=== PATIENT | female | born 1980 | race Caucasian/White ===

== ENCOUNTER 2019-07-21 13:26 | Emergency (ER) | payer SELFPAY ==
--- OUTSIDE RECORDS SUMMARY | 2019-07-21 13:49 | XMS REPORT | Summary of Care ---
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 Tab cetirizine (ZYRTEC) Take 1 Tab by 30 Tab 1 12/29/2014 Active 10 MG Oral Tab mouth DAILY. cyclobenzaprine Take 1 Tab by 30 Tab 1 08/03/2017 Active (FLEXERIL) 10 MG Oral mouth THREE TabIndications: TIMES DAILY Strain of lumbar NEEDED for region, initial muscle spasm. encounter escitalopram Take 1 Tab by 90 Tab 3 09/29/2017 Active (LEXAPRO) 10 MG Oral mouth DAILY. TabIndications: Anxiety and depression VENTOLIN HFA 108 (90 INHALE 2 PUFFS 18 g 5 07/01/2018 Active Base) MCG/ACT BY MOUTH EVERY Inhalation Aero 4 HOURS SolnIndications: Mild NEEDED FOR intermittent asthma WHEEZING with acute exacerbation Benzonatate 200 MG Take 40 Caps 40 Cap 0 05/06/2019 Active Oral CapIndications: by mouth EVERY Cough EIGHT HOURS NEEDED (cough). doxycycline Take 100 mg by 14 Tab 0 05/05/2019 Discontinued (VIBRAMYCIN) 100 MG mouth TWICE 0 Oral TabIndications: DAILY. Acute recurrent frontal sinusitis fluconazole Take 1 Tab by 2 Tab 2 05/05/2019 Discontinued (DIFLUCAN) 150 MG mouth ONE 0 Oral Tab TIME. documented as of this encounter (statuses as of 05/24/2019) Active Problems Problem Noted Date Unspecified asthma(493.90) 05/26/2007 Personal history of tobacco use, presenting hazards to health 05/26/2007 Overview: Quit 2007 Allergic rhinitis, cause unspecified 03/26/2007 documented as of this encounter (statuses as of 05/24/2019) Immunizations Name Administration Dates Next Due DTAP Vaccine 12/05/1983, 04/03/1981 Influenza (IM) Preservative Free 03/01/2019, 02/17/2018, 02/05/2017, 02/19/2015, 03/10/2014, 03/13/2012 Influenza Vaccine Whole 11/03/2006 MENINGOCOCCAL CONJUGATE VACCINE 06/01/2007 MMR VACCINE 02/02/1992, 02/05/1980 Polio - Inactivated Vaccine 06/12/1979, 04/10/1979, 03/06/1979, 01/29/1979 TDAP Vaccine 01/17/2011, 01/18/2009 Tuberculin Skin Test 12/05/1983, 11/06/1979 documented as of this encounter Social History Tobacco Use Types Packs/Day Years Used Date Former Smoker Quit: 05/18/2007 Smokeless Tobacco: Never Used Alcohol Use Drinks/Week oz/Week Comments Yes 0 Standard drinks or equivalent 0.0 occasional Sex Assigned at Date Recorded Not on file Job Start Date Occupation Industry Not on file Not on file Not on file Travel History Travel Start Travel End No recent travel history available. documented as of this encounter Last Filed Vital Signs Vital Sign Reading Time Taken Comments Blood Pressure 130/84 05/24/2019 2:22 PM EST Pulse 94 05/24/2019 2:22 PM EST Temperature - - Respiratory Rate - - Oxygen Saturation 96% 05/24/2019 2:22 PM EST Inhaled Oxygen Concentration - - Weight 88.9 kg (196 lb) 05/24/2019 2:22 PM EST Height 157.5 cm (5' 2") 05/24/2019 2:22 PM EST Body Mass Index 35.85 05/24/2019 2:22 PM EST documented in this encounter Patient Instructions Patient InstructionsJennifer Lyon FNP - 05/24/2019 2:20 PM TONI will send you pap smear results Send eguthrie note about dose of lexapro you are taking and can then adjust. documented in this encounter Progress Notes Jennifer Lyon FNP - 05/24/2019 2:20 PM EST PATIENT: Deb Angelo : 1980 DATE OF SERVICE: 05/24/2019 Chief Complaint Patient presents with Physical SUBJECTIVE: 38-y.o. 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 She is feeling well and no new concerns. She is having first baseline mammogram today. She is having some increase in anxiety. Not sure about her dose. Only taking 1 /2 tab of what she has but not sure if a 10 mg or a 20 mg tab. Patient Active Problem List Diagnosis Date Noted Unspecified asthma(493.90) 05/26/2007 Personal history of tobacco use, presenting hazards to health 05/26/2007 Quit 2007 Allergic rhinitis, cause unspecified 03/26/2007 Current Outpatient Medications Medication Sig Benzonatate 200 MG Oral Cap Take 40 Caps by mouth EVERY EIGHT HOURS NEEDED (cough). cetirizine (ZYRTEC) 10 MG Oral Tab Take 1 Tab by mouth DAILY. cyclobenzaprine (FLEXERIL) 10 MG Oral Tab Take 1 Tab by mouth THREE TIMES DAILY NEEDED formuscle spasm. escitalopram (LEXAPRO) 10 MG Oral Tab Take 1 Tab by mouth DAILY. fexofenadine (NELLY) 180 MG Oral Tab Take 1 Tab by mouth DAILY. VENTOLIN HFA 108 (90 Base) MCG/ACT Inhalation Aero Soln INHALE 2 PUFFS BY MOUTH EVERY 4 HOURSAS NEEDED FOR WHEEZING No current facility-administered medications for this visit. Allergies: Amoxicillin; Celexa; and Keflex Patient's last menstrual period was 05/10/2019. ROS: She denies constitutional symptoms of fatigue, weakness, weight loss or gain, fevers, night sweats. No dyspnea or chest pain on exertion. No abdominal pain, change in bowel habits, black or bloody stools. 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 Normal menses, no abnormal bleeding, pelvic pain or discharge. No breast pain or new or enlarging lumps on self exam. No neurological complaints. OBJECTIVE: The patient appears well, alert, oriented x 3, in no distress. BP 130/84 (BP Location: Right arm, Patient Position: Sitting) | Pulse 94 | Ht 5' 2" (1.575 m) | Wt 196 lb (88.9 kg) | LMP 05/10/2019 | SpO2 96% | BMI 35.85 kg/m ENT normal. Neck supple. No adenopathy or thyromegaly. MARITZA. Lungs are clear, good air entry, no wheezes, rhonchi or rales. S1 and S2 normal, no murmurs, regular rate and rhythm. Abdomen soft withouttenderness, guarding, mass or organomegaly. Extremities show no edema, normal peripheral pulses. Neurological is normal, no focal findings. BREAST EXAM: breasts appear normal, no suspicious masses, no skin or nipple changes or axillary nodes PELVIC EXAM: normal external genitalia, vulva, vagina, cervix, uterus and adnexa. Pap done. ASSESSMENT: ICD-9-CM ICD-10-CM 1. Routine general medical examination at a health care facility V70.0 Z00.00 2. Pap smear for cervical cancer screening V76.2 Z12.4 PAP SMEAR THINPREP AND HPV 3. Anxiety and depression 300.00 F41.9 311 F32.9 Not clear about her lexapro dosing. ? If 10 or 20 mg. She will call with update and increase instructions. Patient Instructions I will send you pap smear results Send eguthrie note about dose of lexapro you are taking and can then adjust. Author: THOMAS Cobian 05/24/2019 15:21 documented in this encounter Plan of Treatment Name Type Priority Associated Diagnoses Order Schedule PAP SMEAR THINPREP AND Lab Routine Pap smear for cervical Ordered: 2019 HPV cancer screening Health Maintenance Due Date Last Done Comments PNEUMOCOCCAL 0-64 YRS (1 of 1984 1 - PPSV23) DIABETES SCREENING 08/18/2018 08/18/2017, 08/25/2014 MAMMOGRAM (SCREENING) 2018 DEPRESSION SCREENING 05/05/2020 05/05/2019 PAP SMEAR 12/16/2020 12/16/2017, 03/19/2010, 01/18/2009 DTaP/Tdap/Td Vaccines (5 - 01/17/2021 01/17/2011, 01/18/2009, Tdap) 12/05/1983, Additional history exists LIPID DISORDER SCREENING 08/18/2022 08/18/2017, 08/25/2014, 08/23/2009, Additional history exists MENINGOCOCCAL VACCINE IMM Aged Out 06/01/2007 No longer eligible based on patient's age to complete this topic INFLUENZA VACCINE Completed 03/01/2019, 02/17/2018, 02/05/2017, Additional history exists HEPATITIS A IMMUNIZATION Aged Out No longer eligible SERIES based on patient's age to complete this topic HPV IMMUNIZATION SERIES Aged Out No longer eligible based on patient's age to complete this topic documented as of this encounter Goals Goal Patient Goal Associated Recent Patient-Stated? Author Type Problems Progress Depression Depression No Keke, screen (PHQ-9) Rashawn Shah, total score < 5 Note: This is an individualized treatment (depression) goal for Deb Angelo: Displayed above is your goal for a depression screening (PHQ-9) score that would indicate good control of your depression. Keep a regular sleep schedule Lifestyle Rashawn Church MD Note: This is an individualized lifestyle goal for Deb Angelo: Please maintain a regular sleep schedule. This may help with some symptoms of depression. Take all prescribed medications as Self-management Rashawn Church MD directed Note: This is an individualized self-management goal for Deb Angelo: Please take all prescribed medications as directed. 1. Do not skip doses. If you cannot afford your medications, talk with your doctor. 2. Use a pill reminder system such as a pill box if needed. Your pharmacist can help you with this. 3. Contact your Pharmacy 5 days before your medication runs out. If you cannot take your medications for any reasons, talk with your doctor. 4. Please bring all of your medication bottles and inhalers (or a list of all your medications/inhalers) with you to every visit. Potential barriers to meeting all of your care plan goals will continue to be addressed on an ongoing basis. documented as of this encounter Procedures Procedure Name Priority Date/Time Associated Diagnosis Comments PAP SMEAR THINPREP AND Routine 12/16/2017 Results for this HPV (EXTERNAL) procedure are in the results section. documented in this encounter Results PAP SMEAR THINPREP AND HPV (EXTERNAL) (12/16/2017) HM PAP SMEAR Dr Resendiz [facility] POCT Performing Organization Address City/State/Zipcode Phone Number [facility] [address]CT [address] [place] [address] documented in this encounter Visit Diagnoses Diagnosis Routine general medical examination at a health care facility Pap smear for cervical cancer screening Screening for malignant neoplasm of the cervix Anxiety and depression Dysthymic disorder documented in this encounter Insurance Payer Benefit Plan / Subscriber ID Effective Dates Phone Address Type Group [employer] xxxxxxxxxxxx 2016-Present [employer] Guarantor Name Account Type Relation to Date of Phone Billing Patient Address Deb Angelo Personal/Family [address] (Home) [facility] [phone] [place] [address] (Work) documented as of this encounter
--- OUTSIDE RECORDS SUMMARY | 2019-07-21 13:49 | XMS REPORT | Summary of Care ---
:1980 Author Organization [facility] Address [address] [facility] [place] [address] Care Team Providers Name Role Phone Rashawn Davies Primary Care Provider Reason for Visit Reason Comments Eye Problem Left eye red and irritated. Encounter Details Date Type Department Care Team Description 07/14/2019 Office Visit [facility] Rashawn Davies Bacterial conjunctivitis Medicine MD Pablo of left eye (Primary Dx) [address] [place] [address] [place] [address] [phone] Allergies Active Allergy Reactions Severity Noted Date Comments Amoxicillin Unknown Reaction 05/26/2007 Celexa Other 12/18/2014 palpitations Keflex Unknown Reaction 05/26/2007 documented as of this encounter (statuses as of 07/14/2019) Medications Medication Sig Dispensed Refills Start Date End Date Status fexofenadine (NELLY) Take 1 Tab by 90 5 08/20/2009 Active 180 MG Oral Tab mouth DAILY. cetirizine (ZYRTEC) 10 Take 1 Tab by 30 Tab 1 12/29/2014 Active MG Oral Tab mouth DAILY. cyclobenzaprine Take 1 Tab by 30 Tab 1 08/03/2017 Active (FLEXERIL) 10 MG Oral mouth THREE TabIndications: Strain TIMES DAILY of lumbar region, NEEDED for initial encounter muscle spasm. VENTOLIN HFA 108 (90 INHALE 2 PUFFS 18 g 5 07/01/2018 Active Base) MCG/ACT BY MOUTH EVERY Inhalation Aero 4 HOURS SolnIndications: Mild NEEDED FOR intermittent asthma WHEEZING with acute exacerbation Benzonatate 200 MG Oral Take 40 Caps by 40 Cap 0 05/06/2019 Active CapIndications: Cough mouth EVERY EIGHT HOURS NEEDED (cough). escitalopram (LEXAPRO) Take 1 Tab by 90 Tab 5 05/25/2019 05/24/2020 Active 20 MG Oral Tab mouth DAILY. fluconazole (DIFLUCAN) Take 1 Tab by 2 Tab 0 05/31/2019 Active 150 MG Oral mouth DAILY. TabIndications: Candidiasis of female genitalia triamcinolone Apply to 1 Tube 0 06/27/2019 Active (KENALOG,ARISTOCORT) affected areas 0.1 % Apply externally twice daily. CreamIndications: Irritant contact dermatitis due to other chemical products oseltamivir (TAMIFLU) Take 1 Cap by 10 Cap 0 07/06/2019 Active 75 MG Oral Cap mouth DAILY. yezqdaos-[id number] Place 2 Drops 7.5 mL 0 07/14/2019 Active ocortisone in left eye (CORTISPORIN) FOUR TIMES Ophthalmic Suspension DAILY. documented as of this encounter (statuses as of 07/14/2019) Active Problems Problem Noted Date Unspecified asthma(493.90) 05/26/2007 Personal history of tobacco use, presenting hazards to health 05/26/2007 Overview: Quit 2007 Allergic rhinitis, cause unspecified 03/26/2007 documented as of this encounter (statuses as of 07/14/2019) Immunizations Name Administration Dates Next Due DTAP [...] Assigned at Date Recorded Not on file documented as of this encounter Last Filed Vital Signs Vital Sign Reading Time Taken Comments Blood Pressure 118/70 07/14/2019 1:59 PM EST Pulse 70 07/14/2019 1:59 PM EST Temperature - - Respiratory Rate - - Oxygen Saturation - - Inhaled Oxygen Concentration - - Weight 89.8 kg (198 lb) 07/14/2019 1:59 PM EST Height 157.5 cm (5' 2") 07/14/2019 1:59 PM EST Body Mass Index 36.21 07/14/2019 1:59 PM EST documented in this encounter Patient Instructions Patient InstructionsRashawn Davies MD - 07/14/2019 1:40 PM ESTPink eye use antibiotic eye drops four times daily Left eye five days documented in this encounter Progress Notes Rashawn Davies MD - 07/14/2019 1:40 PM ESTSUBJECTIVE: 38-y.o. female with burning, redness, discharge and mattering in left eye for 2 days. No other symptoms. No significant prior ophthalmological history. No change in visual acuity, no photophobia, no severe eye pain. OBJECTIVE: Patient appears well, vitals signs are normal. Eyes: left eye with findings of typical conjunctivitis noted; erythema and discharge. PERRLA, no foreign body noted. No periorbital cellulitis. The corneas are clear and fundi normal. Visual acuity normal. ASSESSMENT: Conjunctivitis - probably bacterial PLAN: Antibiotic drops per order. Hygiene discussed. If other family members develop same condition, may use same medication for them if they are not known to be allergic to it. Call prn. documented in this encounter Plan of Treatment Health Maintenance Due Date Last Done Comments DIABETES SCREENING 08/18/2018 08/18/2017, 08/25/2014 DEPRESSION SCREENING 05/05/2020 05/05/2019 MAMMOGRAM (SCREENING) 05/24/2020 05/24/2019 DTaP/Tdap/Td Vaccines (5 - 01/17/2021 01/17/2011, 01/18/2009, Tdap) 12/05/1983, Additional history exists PAP SMEAR 05/24/2022 05/24/2019, 12/16/2017, 03/19/2010, Additional history exists LIPID DISORDER SCREENING 08/18/2022 [...] on patient's age to complete this topic PNEUMOCOCCAL 0-64 YRS Aged Out No longer eligible based on [...] ongoing basis. documented as of this encounter Results Not on filedocumented in this encounter Visit Diagnoses Diagnosis Bacterial conjunctivitis of left eye Other conjunctivitis documented in this encounter Insurance Payer Benefit Plan / Subscriber ID Effective Dates Phone Address Type Group [employer] [id number] 2016-Present [employer] Guarantor Name Account Type Relation to Date of Phone Billing Patient Address Deb Angelo Personal/Family [address] (Home) [facility] [phone] [place] [address] (Work) documented as of this encounter
--- OUTSIDE RECORDS SUMMARY | 2019-07-21 13:49 | XMS REPORT | Summary of Care ---
:1980 Author Organization [facility] Address [address] [facility] [address] [address] [address] Care Team Providers Name Role Phone Rashawn Davies Primary Care Provider Reason for Visit Reason Comments Check Up rash on upper body started under breast and is now streading down to stomach x1 week Encounter Details Date Type Department Care Team Description 06/27/2019 Office Visit [facility] Rizwana Marroquin, Irritant contact Practice [facility] dermatitis due to [address] [place] [address] [place] [address] products (Primary Dx) [phone] Allergies Active Allergy Reactions Severity Noted Date Comments Amoxicillin Unknown Reaction 05/26/2007 Celexa Other 12/18/2014 palpitations Keflex Unknown Reaction 05/26/2007 documented as of this encounter (statuses as of 06/27/2019) Medications Medication Sig Dispensed Refills Start Date End Date Status fexofenadine Take 1 Tab by 90 5 08/20/2009 Active (NELLY) 180 MG mouth DAILY. Oral Tab cetirizine (ZYRTEC) Take 1 Tab by 30 Tab 1 12/29/2014 Active 10 MG Oral Tab mouth DAILY. cyclobenzaprine Take 1 Tab by 30 Tab 1 08/03/2017 Active (FLEXERIL) 10 MG mouth THREE Oral TabIndications: TIMES DAILY Strain of lumbar NEEDED for region, initial muscle spasm. encounter VENTOLIN HFA 108 (90 INHALE 2 18 g 5 07/01/2018 Active Base) MCG/ACT PUFFS BY Inhalation Aero MOUTH EVERY 4 SolnIndications: HOURS Mild intermittent NEEDED FOR asthma with acute WHEEZING exacerbation Benzonatate 200 MG Take 40 Caps 40 Cap 0 05/06/2019 Active Oral CapIndications: by mouth Cough EVERY EIGHT HOURS NEEDED (cough). escitalopram Take 1 Tab by 90 Tab 5 05/25/2019 05/24/19 Active (LEXAPRO) 20 MG Oral mouth DAILY. 21 Tab fluconazole Take 1 Tab by 2 Tab 0 05/31/2019 Active (DIFLUCAN) 150 MG mouth DAILY. Oral TabIndications: Candidiasis of female genitalia triamcinolone Apply to 1 Tube 0 06/27/2019 06/27/19 Discontinued (KENALOG,ARISTOCORT) affected 20 (Reorder) 0.1 % Apply areas twice externally daily. CreamIndications: Irritant contact dermatitis due to other chemical products documented as of this encounter (statuses as of 06/27/2019) Active Problems Problem Noted Date Unspecified asthma(493.90) 05/26/2007 Personal history of tobacco use, presenting hazards to health 05/26/2007 Overview: Quit 2007 Allergic rhinitis, cause unspecified 03/26/2007 documented as of this encounter (statuses as of 06/27/2019) Immunizations Name Administration Dates Next Due DTAP [...] Sign Reading Time Taken Comments Blood Pressure 126/72 06/27/2019 2:25 PM EST Pulse 80 06/27/2019 2:25 PM EST Temperature 37.1 06/27/2019 2:25 PM EST C (98.7 F) Respiratory Rate - - Oxygen Saturation 98% 06/27/2019 2:25 PM EST Inhaled Oxygen Concentration - - Weight 89.8 kg (198 lb) 06/27/2019 2:25 PM EST Height 157.5 cm (5' 2") 06/27/2019 2:25 PM EST Body Mass Index 36.21 06/27/2019 2:25 PM EST documented in this encounter Patient Instructions Patient InstructionsRizwana Marroquin NP - 06/27/2019 2:20 PM ESTCetirizine 10mg daily. Triamcinolone apply to affected areas once or twice daily for 1-2 weeks. Keep the area clean and dry. Only use skin sensitive soaps, scent free - no other chemicals etc. If not improving, or getting worse - return for re-eval. documented in this encounter Progress Notes Rizwana Marroquin NP - 06/27/2019 2:20 PM EST PATIENT: Deb Angelo : 1980 DATE OF SERVICE: 06/27/2019 CHIEF COMPLAINT: Chief Complaint Patient presents with Check Up rash on upper body started under breast and is now streading down to stomach x1 week Subjective HISTORY OF PRESENT ILLNESS: Deb Angelo is a 38-y.o. female. HPI Rash x1 week, started under both breasts after wearing a new bra did not wash- but stopped wearing the bra, and all bras - but rash spread down to abdomen. The rash itches, no drainage. Not painful.Anti itch cream helps. No fevers body aches chills malaise. Past Medical History: Diagnosis Date Allergic rhinitis, cause unspecified 03/26/2007 Personal history of tobacco use, presenting hazards to health 05/26/2007 Unspecified asthma(493.90) 05/26/2007 Family History Problem Relation Age of Onset Hypertension Mother Thyroid Mother Stroke Mother Hypertension Father Asthma Father Current Outpatient Medications Medication Sig Benzonatate 200 MG Oral Cap Take 40 Caps by mouth EVERY EIGHT HOURS NEEDED (cough). cetirizine (ZYRTEC) 10 MG Oral Tab Take 1 Tab by mouth DAILY. cyclobenzaprine (FLEXERIL) 10 MG Oral Tab Take 1 Tab by mouth THREE TIMES DAILY NEEDED formuscle spasm. escitalopram (LEXAPRO) 20 MG Oral Tab Take 1 Tab by mouth DAILY. fexofenadine (NELLY) 180 MG Oral Tab Take 1 Tab by mouth DAILY. fluconazole (DIFLUCAN) 150 MG Oral Tab Take 1 Tab by mouth DAILY. triamcinolone (KENALOG,ARISTOCORT) 0.1 % Apply externally Cream Apply to affected areas twicedaily. VENTOLIN HFA 108 (90 Base) MCG/ACT Inhalation Aero Soln INHALE 2 PUFFS BY MOUTH EVERY 4 HOURSAS NEEDED FOR WHEEZING No current facility-administered medications for this visit. Allergies Allergen Reactions Amoxicillin Unknown Reaction Celexa Other palpitations Keflex Unknown Reaction Social History Socioeconomic History Marital status: Spouse name: Not on file Number of children: Not on file Years of education: Not on file Highest education level: Not on file Occupational History Not on file Social Needs Financial resource strain: Not on file Food insecurity Worry: Not on file Inability: Not on file Transportation needs Medical: Not on file Non-medical: Not on file Tobacco Use Smoking status: Former Smoker Last attempt to quit: 05/18/2007 Years since quittin.1 Smokeless tobacco: Never Used Substance and Sexual Activity Alcohol use: Yes Alcohol/week: 0.0 standard drinks Comment: occasional Drug use: No Sexual activity: Yes Partners: Male Lifestyle Physical activity Days per week: Not on file Minutes per session: Not on file Stress: Not on file Relationships Social connections Talks on phone: Not on file Gets together: Not on file Attends scientology service: Not on file Active member of club or organization: Not on file Attends meetings of clubs or organizations: Not on file Relationship status: Not on file Intimate partner violence Fear of current or ex partner: Not on file Emotionally abused: Not on file Physically abused: Not on file Forced sexual activity: Not on file Other Topics Concern Back Care Not Asked Bike Helmet Not Asked Blood Transfusions Not Asked Caffeine Concern Yes Comment: 2 c coffee/day Exercise No Hobby Hazards Not Asked International Travel Not Asked Service Not Asked Occupational Exposure Not Asked Seat Belt Not Asked Self-Exams Not Asked Sleep Concern Not Asked Special Diet No Stress Concern Not Asked Weight Concern Yes Comment: she would like to lose 15-20 lbs. 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 REVIEW OF SYSTEMS: Review of Systems Constitutional: Negative for chills, fever and malaise/fatigue. Musculoskeletal: Negative for joint pain and myalgias. Skin: Positive for itching and rash. Neurological: Negative for tingling and sensory change. Objective PHYSICAL EXAM: VITALS: BP 126/72 (BP Location: Left arm, Patient Position: Sitting) | Pulse 80 | Temp 98.7 F(37.1 C) (Tympanic) | Ht 5' 2" (1.575 m) | Wt 198 lb (89.8 kg) | SpO2 98% | BMI 36.21 kg/m Body mass index is 36.21 kg/m. Physical Exam Vitals signs and nursing note reviewed. Constitutional: General: She is not in acute distress. Appearance: Normal appearance. She is well-developed. Cardiovascular: Rate and Rhythm: Normal rate and regular rhythm. Heart sounds: Normal heart sounds. No murmur. No friction rub. No gallop. Pulmonary: Effort: Pulmonary effort is normal. No respiratory distress. Breath sounds: Normal breath sounds. Chest: Skin: Findings: Rash present. Rash is macular and papular. Rash is not urticarial. Neurological: Mental Status: She is alert. Psychiatric: Mood and Affect: Mood and affect normal. Speech: Speech normal. Behavior: Behavior normal. Behavior is cooperative. ASSESSMENT / IMPRESSION: ICD-9-CM ICD-10-CM 1. Irritant contact dermatitis due to other chemical products 692.4 L24.5 DISCONTINUED: triamcinolone (KENALOG,ARISTOCORT) 0.1 % Apply externally Cream Plan 1. Irritant contact dermatitis due to other chemical products Cetirizine 10mg daily. Triamcinolone apply to affected areas once or twice daily for 1-2 weeks. Keep the area clean and dry. Only use skin sensitive soaps, scent free - no other chemicals etc. If not improving, or getting worse - return for re-eval. Author: Rizwana Marroquin NP 06/27/2019 20:08 documented in this encounter Plan of Treatment Health Maintenance Due Date Last Done Comments PNEUMOCOCCAL 0-64 YRS (1 of 1984 1 - PPSV23) DIABETES SCREENING 08/18/2018 08/18/2017, 08/25/2014 DEPRESSION SCREENING [...] Depression Depression No Keke, screen (PHQ-9) Rashawn Shah total score < 5 Note: This is [...] filedocumented in this encounter Visit Diagnoses Diagnosis Irritant contact dermatitis due to other chemical products documented in this encounter Insurance Payer Benefit Plan / Subscriber ID Effective Dates Phone Address Type Group [employer] xxxxxxxxxxxx 2016-Present [employer] Guarantor Name Account Type Relation to Date of Phone Billing Patient Address Deb Angelo Personal/Family [address] (Home) [place] [phone] [place] [id number] (Work) documented as of this encounter
[2019-07-21 14:18] VITALS: BP 119/79
[2019-07-21] MEDS ORDERED: Tetan/Diph/Pertus SYR(Tdap)* 0.5 ML SYR(BOOSTRIX) use SYR contains LATEX IM ONE (15:09)
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
[2019-07-21 19:07] LABS: Hepatitis B Surface Antigen Nonreactive (Nonreactive)
[2019-07-21 19:25] LABS: Hepatitis B Surface Ab Immune (Immune); Hepatitis C Antibody Negative (Negative)
[2019-07-21 19:53] LABS: HIV 4th Generation Nonreactive (Nonreactive)
== END 2019-07-21 16:15 | disposition home or self-care (01) ==
LOC: UCEAST 13:26
DX: S71.152A Open bite, left thigh, initial encounter (principal); Z88.1 Allergy status to other antibiotic agents; W50.3XXA Accidental bite by another person, initial encounter; Y92.219 Unspecified school as the place of occurrence of the external cause; Y99.0 Civilian activity done for income or pay
CPT/HCPCS: 36415; 86706; 86803; 87340; 87389; 90471; 90715; 99202; G0463